=== PATIENT | male | born 1965 ===

== ENCOUNTER 2018-05-21 09:36 | Day surgery (SDC) | payer OTHER ==
[2018-05-21] MEDS ORDERED: LIDOCAINE 2% MDV (20MG/ML) 20ML VIAL IV ONE (09:37)
[2018-05-21] MEDS ORDERED: PROPOFOL 10 MG/ML VIAL IV ONE (09:37)
--- NOTE | 2018-05-22 13:11 | Operative Note ---
DATE OF SURGERY: 05/21/2018 OPERATION: COLONOSCOPY to the cecum. INDICATION: Colorectal cancer screening. This is the patient's first examination. ANESTHESIA: Intravenous sedation was administered by the department of anesthesiology and included Diprivan titrated to effect. PROCEDURE: Following informed consent from this alert individual including a discussion of the risks and benefits of the procedure and an opportunity for the patient to ask questions, the patient was in the left lateral decubitus position. A digital rectal examination was performed. No abnormalities were noted. Following this, the Olympus [id number] video colonoscope was inserted into the rectum without resistance. The rectal mucosa had a normal appearance with normal folds and distensibility. The colonoscope was advanced up through the colon to the level of the cecum without much difficulty. Throughout the bowel the mucosa appeared normal, the folds were normal, and the bowel was fairly well distensible. The cecum was defined by noting the appendiceal orifice and ileocecal valve. From the base of the cecum, the colonoscope was then slowly withdrawn. The colon preparation overall was good. Some washing and suctioning was employed and facilitated adequate visualization. No abnormalities were detected upon withdrawal of the colonoscope. Retroflexion in the rectum revealed some small internal hemorrhoids. No other changes were appreciated. The patient tolerated the procedure well and was returned to the recovery area in stable condition. IMPRESSION: 1. Small internal hemorrhoids. 2. Otherwise unremarkable colonoscopy to the cecum. RECOMMENDATIONS: The patient was advised to have recheck colonoscopy in 10 years' time or sooner should problems arise. Followup will be with Dr. Frederic Larkin. As always, thank you for allowing me to participate in the care of your patient. CC: DO MARIAA Rico
== END 2018-05-21 12:10 | disposition home or self-care (01) ==
LOC: HOP 09:36
PROVIDERS: ATTEND Internal Medicine Gastroenterology
DX: Z12.11 Encounter for screening for malignant neoplasm of colon (principal); K64.8 Other hemorrhoids; E78.00 Pure hypercholesterolemia, unspecified; E11.9 Type 2 diabetes mellitus without complications
CPT/HCPCS: 00812; G0121